=== PATIENT | male | born 1990 | race Caucasian/White ===

== ENCOUNTER 2022-01-15 13:34 | Emergency (ER) | payer OTHER ==
[~2022-01-15] VITALS: Ht 162.6 cm; Wt 63.5 kg
== END 2022-01-15 17:05 | disposition home or self-care (01) ==
LOC: ER 13:34
DX: S50.911A Unspecified superficial injury of right forearm, initial encounter (principal); X99.1XXA Assault by knife, initial encounter; Y93.89 Activity, other specified; Y92.512 Supermarket, store or market as the place of occurrence of the external cause